=== PATIENT | male | born 1945 | race Caucasian/White ===

== ENCOUNTER 2017-04-05 21:10 | Emergency (ER) | payer OTHER, MEDICARE ==
[~2017-04-05] VITALS: Ht 152.4 cm; Wt 62.5 kg
[~2017-04-05 21:10] MED LIST: Bactrim,Septra Singl PO; ENDOCET 5-3251 EACH PO; LISINOPRIL2.5 MG PO; MOBIC15 MG PO; Mobic PO; PRAVACHOL40 MG PO; Pravachol PO; ST. JOSEPH ASPI81 MG PO; THERAGRAN1 TABLET PO; ZYLOPRIM300 MG PO; Zyloprim PO
[2017-04-05 21:47] LABS: HEMATOCRIT 44.2 % (38.0-50.0); HEMOGLOBIN 15.1 G/DL (12.5-16.6); MCHC 34.2 G/DL (30.0-36.0); MCV 96.7 FL (86-99); PLATELET COUNT 181 K/uL (156-360); RED BLOOD COUNT 4.57 M/uL (4.00-5.50); WHITE BLOOD COUNT 8.3 K/uL (4.1-10.2)
[2017-04-05 22:06] LABS: ALBUMIN 4.1 g/dL (3.2-4.8); CHLORIDE 97 mEq/L (99-109); POTASSIUM 4.5 mEq/L (3.7-5.4); SODIUM 131 mEq/L (136-147)
[2017-04-05 22:08] LABS: GLUCOSE 111 mg/dL (70-99); TOTAL PROTEIN 7.4 g/dL (6.4-8.3)
[2017-04-05 22:10] LABS: TOTAL BILIRUBIN 0.5 mg/dL (0.0-1.0)
[2017-04-05 22:12] LABS: ALKALINE PHOSPHATASE 74 IU/L (3-129); CREATININE 1.2 mg/dL (0.6-1.3); GFR ESTIMATE (CALCULATED) > 59 mL/min/ (58.99-99999)
[2017-04-05 22:13] LABS: UREA NITROGEN (BUN) 25 mg/dL (9-23)
[2017-04-05 22:14] LABS: AST (GOT) 48 IU/L (2-34)
[2017-04-05 22:15] LABS: ALT (GPT) 34 IU/L (3-49)
[2017-04-06 00:27] LABS: APPEARANCE CLEAR ((CLEAR)); BILIRUBIN NEGATIVE; BLOOD MODERATE; COLOR YELLOW ((YELLOW)); GLUCOSE (STRIP) NEGATIVE; KETONES 20; LEUKOCYTES NEGATIVE; NITRITE NEGATIVE; PROTEIN (STRIP) 100; UROBILINOGEN 0.2 MG/DL (0.2-1.0)
[2017-04-06 00:31] LABS: BACTERIA NONE SEEN /HPF; EPITHELIAL CELLS RARE /HPF; MUCUS NONE SEEN /LPF; UCUL ADDED? NO; WHITE BLOOD CELLS 0-5 /HPF (0-5)
[2017-04-06] MEDS ORDERED: CEFDINIR300 MG PO (01:38)
[2017-04-06] MEDS ORDERED: ZOFRAN ODT4 MG PO (01:38)
[2017-04-06] MEDS ORDERED: TAMIFLU75 MG PO (01:38)
[2017-04-06 02:23] VITALS: BP 104/69
== END 2017-04-06 02:24 | disposition home or self-care (01) ==
LOC: EME 21:10
PROVIDERS: Physician Assistant
DX: J11.1 Influenza due to unidentified influenza virus with other respiratory manifestations (principal); J01.90 Acute sinusitis, unspecified; B96.89 Other specified bacterial agents as the cause of diseases classified elsewhere; E86.0 Dehydration; E78.5 Hyperlipidemia, unspecified; I10 Essential (primary) hypertension; Z87.891 Personal history of nicotine dependence; Z85.46 Personal history of malignant neoplasm of prostate; Z79.82 Long term (current) use of aspirin; Z88.0 Allergy status to penicillin; Z88.1 Allergy status to other antibiotic agents
CPT/HCPCS: 71046; 80053; 81003; 83605; 85027; 87040; 87502; 93005; 99281; 99285; J0696; J2405; J7030